=== PATIENT | female | born 1990 | race Caucasian/White ===

== ENCOUNTER 2017-07-26 11:46 | Emergency (ER) | payer BC ==
[2017-07-26 12:33] VITALS: BP 125/82
--- NOTE | 2017-07-26 12:36 | UC ---
Throat Pain/Nasal Francis HPI - HPI Summary HPI Summary: patient states right maxillary sinus pressure for the last two weeks, has been taking OTC meds without relief. - History of Current Complaint Stated Complaint: SINUS PRESSURE Time Seen by Provider: 07/26/17 12:15 Hx Obtained From: Patient ?: No Onset/Duration: Sudden Onset, Lasting Weeks Severity: Severe Associated Signs & Symptoms: Positive: Dysphagia, Sinus Discomfort, Nasal Discharge - Allergies/Home Medications Allergies/Adverse Reactions: Allergies Allergy/AdvReac Type Severity Reaction Status Date / Time No Known Allergies Allergy Verified 07/26/17 12:33 Home Medications: Home Medications Levothyroxine TAB* [Synthroid TAB*] 25 mcg PO DAILY 07/26/17 [History Confirmed 07/26/17] Norgestimate-Ethinyl Estradiol [Sprintec 28 0.25-35 mg-Mcg] 1 tab PO DAILY 07/26 [History Confirmed 07/26/17] PMH/Surg Hx/FS Hx/Imm Hx Previously Healthy: Yes - Family History Known Family History: Negative: Cardiac Disease, Hypertension Review of Systems Constitutional: Negative Skin: Negative Eyes: Negative ENT: Sore Throat, Nasal Discharge, Sinus Congestion, Sinus Pain/Tenderness Respiratory: Negative Cardiovascular: Negative Gastrointestinal: Negative Genitourinary: Negative Motor: Negative Neurovascular: Negative Musculoskeletal: Negative Neurological: Headache Psychological: Negative All Other Systems Reviewed And Are Negative: Yes Physical Exam Triage Information Reviewed: Yes Eye Exam: Normal ENT: Positive: Pharyngeal erythema, Nasal congestion, TM red, Tonsillar exudate Dental Exam: Normal Neck exam: Normal Neck: Positive: Supple, Nontender, No Lymphadenopathy Respiratory Exam: Normal Respiratory: Positive: Chest non-tender, Lungs clear, Normal breath sounds Cardiovascular Exam: Normal Cardiovascular: Positive: RRR, No Murmur, Pulses Normal Abdominal Exam: Normal Abdomen Description: Positive: Nontender, No Organomegaly, Soft Musculoskeletal Exam: Normal Neurological Exam: Normal Psychological Exam: Normal Skin Exam: Normal Throat Pain/Nasal Course/Dx - Course Course Of Treatment: hx obtained, exam performed ,meds reviewed, treated for sinusitis - Differential Dx/Diagnosis Differential Diagnosis/HQI/PQRI: Otitis Media, Pharyngitis, Sinusitis, URI Provider Diagnoses: sinusitis Discharge - Discharge Plan Condition: Stable Disposition: HOME Prescriptions: Amoxicillin PO (*) [Amoxicillin 875 MG (*)] 875 mg PO BID #14 tab predniSONE TAB* [Deltasone TAB*] 40 mg PO DAILY #10 tab Patient Education Materials: Sinusitis (ED), Warm Compress or Soak (ED) Forms: *Work Release Additional Instructions: 1. take the medication as prescribed. 2. Increase fluid intake and get rest. 3. Warm compresses to the sinuses to help with drainage. 4. Ibuprofen as needed for any pain or fever.
== END 2017-07-26 12:43 | disposition home or self-care (01) ==
LOC: UCCORT 11:46
DX: J32.9 Chronic sinusitis, unspecified (principal)
CPT/HCPCS: 99202; G0463